=== PATIENT | male | born 1945 | race Caucasian/White ===

== ENCOUNTER 2016-07-08 10:47 | Emergency (ER) | payer MEDICARE ==
[~2016-07-08] VITALS: Ht 182.9 cm; Wt 181.4 kg
[2016-07-08 11:00] VITALS: BP 117/66
[2016-07-08] MEDS ORDERED: LIDOCAINE 1% / SOD BICARB 8.4% 20 ML VIAL. IJ ONE (12:00)
[2016-07-08] MEDS ORDERED: DIPHTH,PERTUSS(ACELL),TET TOX 0.5 ML DISP.SYRIN. VAX IM ONE (12:00)
--- NOTE | 2016-07-08 12:15 | RAD ---
Indication puncture wound first webspace of the hand. AP oblique and lateral views of the left hand were obtained. There is considerable swelling involving the hand on the radial side (laterally) with some associated soft tissue swelling of the index finger. There are underlying degenerative changes. An acute bony finding is not seen. No radiopaque foreign body is seen in the soft tissues. IMPRESSION: Soft tissue swelling. Degenerative change. No acute bony finding seen
--- NOTE | 2016-07-08 12:27 | PHYS DOC ---
Past Medical History Past Medical History: COPD, GERD, Hypertension Past Surgical History: Cholecystectomy Additional Past Surgical Histo: CABG Alcohol Use: None Drug Use: None Adult General Chief Complaint Chief Complaint: LACERATION/AVULSION HPI HPI Patient is a 71 year old [f__sex] who presents with [] Review of Systems Review of Systems Constitutional: Denies fever or chills [] Eyes: Denies change in visual acuity, redness, or eye pain [] HENT: Denies nasal congestion or sore throat [] Respiratory: Denies cough or shortness of breath [] Cardiovascular: No additional information not addressed in HPI [] GI: Denies abdominal pain, nausea, vomiting, bloody stools or diarrhea [] : Denies dysuria or hematuria [] Musculoskeletal: Denies back pain or joint pain [] Integument: Denies rash or skin lesions [] Neurologic: Denies headache, focal weakness or sensory changes [] Endocrine: Denies polyuria or polydipsia [] Current Medications Current Medications Current Medications Medications (Trade) Dose Ordered Sig/Sheldon Start Time Stop Time Status Last Admin Dose Admin Diphtheria/ Tetanus/Acell Pertussis (Boostrix) 0.5 ml ONCE ONCE 07/08/16 12:00 07/08/16 12:01 DC 07/08/16 12:22 0.5 ML Lidocaine/Sodium Bicarbonate (Buffered Lidocaine 1%) 20 ml 1X ONCE 07/08/16 12:00 07/08/16 12:01 DC 07/08/16 12:21 20 ML Allergies Allergies Allergies Coded Allergies Type Severity Reaction Last Updated Verified No Known Drug Allergies 07/08/16 No Physical Exam Physical Exam Constitutional: Well developed, well nourished, no acute distress, non-toxic appearance. [] HENT: Normocephalic, atraumatic, bilateral external ears normal, oropharynx moist, no oral exudates, nose normal. [] Eyes: PERRLA, EOMI, conjunctiva normal, no discharge. [] Neck: Normal range of motion, no tenderness, supple, no stridor. [] Cardiovascular:Heart rate regular rhythm, no murmur [] Lungs & Thorax: Bilateral breath sounds clear to auscultation [] Abdomen: Bowel sounds normal, soft, no tenderness, no masses, no pulsatile masses. [] Skin: Warm, dry, no erythema, no rash. [] Back: No tenderness, no CVA tenderness. [] Extremities: No tenderness, no cyanosis, no clubbing, ROM intact, no edema. [] Neurologic: Alert and oriented X 3, normal motor function, normal sensory function, no focal deficits noted. [] Psychologic: Affect normal, judgement normal, mood normal. [] Current Patient Data Vital Signs Vital Signs Date Time Temp Pulse Resp B/P Pulse Ox O2 Delivery O2 Flow Rate FiO2 07/08/16 11:00 98.1 77 18 96 Room Air 98.1 EKG EKG [] Radiology/Procedures Radiology/Procedures REASON: puncture wound to 1st web space PROCEDURE: HAND LEFT 3V Indication puncture wound first webspace of the hand. AP oblique and lateral views of the left hand were obtained. There is considerable swelling involving the hand on the radial side (laterally) with some associated soft tissue swelling of the index finger. There are underlying degenerative changes. An acute bony finding is not seen. No radiopaque foreign body is seen in the soft tissues. IMPRESSION: Soft tissue swelling. Degenerative change. No acute bony finding seen Course & Med Decision Making Course & Med Decision Making Pertinent Labs and Imaging studies reviewed. (See chart for details) Patient presents with a 1.5 cm laceration to the right hand webspace between the first and second digits. The wound was anesthetized with 1% buffered lidocaine. The wound was explored for foreign bodies and none were identified. There was no tendon laceration. The wound was cleaned using chlorhexidine scrub and copiously irrigated using normal saline. Wound edges were well approximated using 4 simple interrupted sutures using 5-0 nylon. The patient tolerated the procedure well and bleeding was controlled. A sterile dressing was applied. The patient presents with puncture wound to the right hand. There are no fractures or dislocations seen on x-ray. He does not have any signs or symptoms of compartment syndrome. The wound was closed with nonabsorbable sutures. He is instructed on wound care. He is also educated on signs and symptoms of compartment syndrome and need for return. The patient had his tetanus immunization updated. Return precautions were discussed. He verbalizes understanding and agrees with plan. Dragon Disclaimer Dragon Disclaimer This electronic medical record was generated, in whole or in part, using a voice recognition dictation system. Departure Departure Impression: Primary Impression: Hand laceration Disposition: HOME, SELF-CARE Condition: STABLE Referrals: Roman LOCKETT MD (PCP) Patient Instructions: Sutured Wound Care, [id number] Additional Instructions: Your wound was closed with nonabsorbable sutures. The sutures may get wet, but do not submerge the wound in water. Please follow-up with your doctor to have the sutures removed in 10 days. Keep the wound covered with antibiotic ointment and a bandage. Clean the wound with soap and water only, do not use peroxide or alcohol to clean the wound. Return to emergency department if you have increased swelling, increased pain, numbness, tingling, or decreased blood flow to the fingers. If you notice signs of infection including redness, swelling, or yellow/green drainage from the wound you should also return to the emergency department or follow-up with your doctor. Problem Qualifiers Primary Impression: Hand laceration Encounter type: initial encounter Laterality: right Qualified Code: S61.411A - Laceration without foreign body of right hand, initial encounter MULUGETA CASTRO Jul 08, 2016 12:27
== END 2016-07-08 13:55 | disposition home or self-care (01) ==
LOC: ER 10:47
DX: S61.411A Laceration without foreign body of right hand, initial encounter (principal); J44.9 Chronic obstructive pulmonary disease, unspecified; I10 Essential (primary) hypertension; K21.9 Gastro-esophageal reflux disease without esophagitis; Z95.1 Presence of aortocoronary bypass graft; X58.XXXA Exposure to other specified factors, initial encounter; Y93.89 Activity, other specified; Y99.8 Other external cause status; Y92.89 Other specified places as the place of occurrence of the external cause
CPT/HCPCS: 12001; 73130; 90471; 90715; 99284-25

== ENCOUNTER → 2017-05-08 | Outpatient (CLI) | payer BC, MEDICARE ==
--- NOTE | 2017-05-08 11:28 | KCIC ---
Bilateral carotid Doppler ultrasound 05/08/2017 CLINICAL INDICATION: Carotid bruit COMPARISON: Carotid ultrasound 09/30/2004. Multiple grayscale, color, and duplex spectral analysis waveform sonographic images were acquired of the carotid, subclavian, and vertebral arteries. Findings: Velocities used to determine stenosis are known to correlate with NASCET angiographic criteria. Right carotid system: Proximal CCA PSV: 155 cm/s Distal ICA PSV: 128 cm/s Distal ICA EDV: 33 cm/s ECA: 170 cm/s ICA/CCA ratio: 0.8 Left carotid system: Proximal CCA PSV: 164 cm/s Proximal ICA PSV: 253 cm/s Proximal ICA EDV: 43 cm/s ECA: 156 cm/s ICA/CCA ratio: 1.6 There is calcified plaque at the right carotid bulb and proximal right ICA. There is eccentric calcified plaque at the left carotid bulb and throughout the left internal carotid artery. There is antegrade flow in the bilateral vertebral arteries. Impression: 1. Scattered calcified plaque throughout the left internal carotid artery with peak systolic velocity suggestive of greater than 70% stenosis, however the ICA/CCA ratio is less than 2. CTA neck could be obtained for further evaluation of degree of luminal stenosis. 2. Mild scattered right carotid arterial system plaque and mildly elevated velocities without hemodynamically significant stenosis by visual or spectral analysis criteria. Electronically signed by: Lul Dailey MD (05/08/2017 11:25 AM) [id number]
== END | disposition home or self-care (01) ==
LOC: KCIC US 09:42
PROVIDERS: ATTEND Family Medicine
DX: I65.21 Occlusion and stenosis of right carotid artery (principal); R09.89 Other specified symptoms and signs involving the circulatory and respiratory systems
CPT/HCPCS: 93880

== ENCOUNTER → 2017-07-02 | Outpatient (CLI) | payer BC ==
[2017-07-02 10:16] LABS: ISTAT CREATININE 1.3 mg/dL (0.7-1.3)
[2017-07-02] MEDS: IOHEXOL 300 MG/ML 100ML VIAL. IV ×2 (10:31)
== END | disposition home or self-care (01) ==
LOC: KCIC CT 09:33
DX: I65.22 Occlusion and stenosis of left carotid artery (principal)
CPT/HCPCS: 70498; 82565; Q9967

== ENCOUNTER → 2017-12-18 | Outpatient (CLI) | payer BC ==
[2017-12-18] MEDS: ZOLPIDEM 5 MG TABLET. PO (22:58)
== END | disposition home or self-care (01) ==
LOC: SLPLAB 18:37
DX: G47.33 Obstructive sleep apnea (adult) (pediatric) (principal); G47.34 Idiopathic sleep related nonobstructive alveolar hypoventilation; G47.61 Periodic limb movement disorder; I10 Essential (primary) hypertension; J44.9 Chronic obstructive pulmonary disease, unspecified; K21.9 Gastro-esophageal reflux disease without esophagitis
CPT/HCPCS: 95810

== ENCOUNTER → 2018-05-16 | Outpatient (CLI) | payer BC ==
[~2018-05-16] MED LIST: LISI2.5T PO; OMEP20CA9 PO
--- NOTE | 2018-05-16 17:15 | KCIC ---
Carotid Doppler ultrasound INDICATION: Stenosis.. COMPARISON: Prior carotid Doppler ultrasound of 05/08/2017. TECHNIQUE: Color, grayscale and doppler ultrasound images obtained of the carotid system bilaterally. Percent stenosis is estimated using criteria that correlates with NASCET methodology. FINDINGS: Peak systolic velocities are as follows in cm/s: Right Carotid System: CCA PSV: 159 ICA PSV: 186 ICA EDV: 32 ECA PSV: 187 ICA/CCA Ratio 1.2 Right vertebral artery is patent with normal direction of flow. Generalized plaque and intimal thickening. Left Carotid System: CCA PSV: 142 ICA PSV: 142 ICA EDV: 20 ECA PSV: 154 ICA/CCA Ratio 1.0 Left vertebral artery is patent with normal direction of flow. Generalized plaque with intimal thickening. IMPRESSION: Elevated internal carotid artery peak systolic velocities bilaterally, compatible with 50-69% moderate stenosis. Note that ICA end-diastolic velocities and IC/CC ratios are not elevated, however. Electronically signed by: Lev Beltran MD (05/16/2018 5:11 PM) [facility]
== END | disposition home or self-care (01) ==
LOC: KCIC US 14:36
PROVIDERS: ATTEND Family Medicine
DX: I65.23 Occlusion and stenosis of bilateral carotid arteries (principal)
CPT/HCPCS: 93880

== ENCOUNTER → 2019-01-14 | Outpatient (CLI) | payer BC ==
[~2019-01-14] MED LIST changes: +ASPI81TA50 PO; +ATOR20TA58 PO; +BUPIVACAINE MPF 0.5% 10 ML VIAL for KCIC. IM ONE; +CYCL10TA2 PO; +DICL100G18 TP; +HYDR-2145 PO; +IOHEXOL 300 MG/ML 50 ML VIAL. INT ART ONE; +LIDOCAINE 1% Multi-Dose 20 ML VIAL. ID ONE; +LISI10TA2 PO; +METO25TA2 PO; +NAPR-514 PO; +NITR0.4T SL; +OMEP20CA10 PO; -OMEP20CA9 PO; +ROPI0.25 PO; +ROPI1TAB2 PO; +SERT100T PO; +methylPREDNISolone ACETATE 40 MG/ML VIAL. INT ART ONE
--- NOTE | 2019-01-14 15:44 | KCIC ---
PROCEDURE Therapeutic left hip injection using fluoroscopic guidance. HISTORY Hip pain. TECHNIQUE The procedure was explained to the patient as were potential risks, including infection, bleeding or allergic reaction. All questions were answered. Informed written and verbal consent was obtained. The hip was prepped and draped in the usual sterile manner. Following administration of local anesthetic, a 22-gauge spinal needle was advanced into the hip joint without difficulty, with care taken to avoid the vascular structures. Stylet was removed and following negative aspiration, a mixture of 4 cc Omnipaque-300, 2 cc (80 mg) Depo-Medrol, 4 cc bupivacaine and 4 cc 1% lidocaine were injected without difficulty. Fluoroscopy demonstrates uniform and satisfactory distribution of the injection through the hip. The needle was removed. There was good hemostasis at the injection site. The patient left in stable condition without immediate complication. Patient was advised as to potential postprocedural complications. 2 spot images were obtained. FLUOROSCOPY TIME: 50 seconds Electronically signed by: Lev Beltran MD (01/14/2019 3:41 PM) [facility]
== END ==
LOC: KCIC 12:35
PROVIDERS: ATTEND Orthopaedic Surgery Sports Medicine
DX: M25.552 Pain in left hip (principal)
CPT/HCPCS: 20610; 77002; J1030; Q9967

== ENCOUNTER → 2019-01-21 | Outpatient (CLI) | payer BC ==
[~2019-01-21] MED LIST changes: -BUPIVACAINE MPF 0.5% 10 ML VIAL for KCIC. IM ONE; -IOHEXOL 300 MG/ML 50 ML VIAL. INT ART ONE; -LIDOCAINE 1% Multi-Dose 20 ML VIAL. ID ONE; -methylPREDNISolone ACETATE 40 MG/ML VIAL. INT ART ONE
--- NOTE | 2019-01-21 14:30 | KCIC ---
LUMBAR SPINE WO CONTRAST History: Low back pain. Left hip pain. Technique: Multiplanar, multi sequential MR imaging was performed of the lumbar spine. Comparison: January 10, 2019 lumbar spine radiograph. Findings: Normal vertebral body height and alignment. No fracture. Conus terminates at the normal location. No evidence of nerve root clumping. Bilateral renal cysts. L1-L2: Minimal posterior disc bulge. Mild facet arthropathy. No canal or neuroforaminal narrowing. L2-L3: Broad-based posterior disc bulge. Mild facet arthropathy. No canal narrowing. Left subarticular recess narrowing with abutment of the descending left L3 nerve root. Mild left neural foraminal narrowing. No right neuroforaminal narrowing. L3-L4: Broad-based posterior disc bulge with superimposed central disc protrusion. Bilateral subarticular recess narrowing with abutment of the descending left L4 nerve root. Moderate facet arthropathy. No canal narrowing. Mild bilateral neural foraminal narrowing. L4-L5: Small posterior disc bulge. Advanced facet arthropathy. No canal narrowing. No neuroforaminal narrowing. L5-S1: Minimal posterior disc bulge. Mild facet arthropathy. No canal narrowing. No neuroforaminal narrowing. Impression: 1. Multilevel lumbar spondylosis most prominent at L2-L3 and L3-L4. 2. L2-L3 and L3-L4 left subarticular recess narrowing with abutment of the descending nerve roots. Correlate for radiculopathy. 3. Mild neural foraminal narrowing left L2-L3 and bilateral L3-L4. Electronically signed by: Hi Rincon DO (01/21/2019 2:27 PM) [facility]
== END | disposition home or self-care (01) ==
LOC: KCIC MRI 11:33
PROVIDERS: ATTEND Orthopaedic Surgery Sports Medicine
DX: M47.26 Other spondylosis with radiculopathy, lumbar region (principal); M48.061 Spinal stenosis, lumbar region without neurogenic claudication; M51.26 Other intervertebral disc displacement, lumbar region; M12.88 Other specific arthropathies, not elsewhere classified, other specified site; N28.1 Cyst of kidney, acquired
CPT/HCPCS: 72148

== ENCOUNTER → 2019-02-11 | Outpatient (CLI) | payer BC ==
[~2019-02-11] MED LIST changes: +ATOR20TA PO; +HYDR-2761 PO; +HYDR12.575 PO; +IOHEXOL 180 MG/ML 10 ML VIAL. ONE; +NAPR1TAB25 PO; -NITR0.4T SL; +NITR0.4T24 SL; +OMEG-165 PO; +methylPREDNISolone ACETATE 40 MG/ML VIAL. ONE; +methylPREDNISolone ACETATE 80 MG/ML VIAL. ONE
--- NOTE | 2019-02-11 21:24 | PAIN ---
DATE OF SERVICE: 02/11/2019 CHIEF COMPLAINT: Low back and left lower extremity pain. 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 The patient reports it is worse with standing, walking, changing positions, getting up from sleep at least waking up to 2-3 times a night, does not affect his bowel or bladder control, but does affect his ability to walk. He is using a walking stick to ambulate and to help ambulate he has had chiropractic treatment over the years, also physical therapies and has continued to do chiropractor treatment, which is helpful, but not decreasing the pain significantly. The patient reports pain in the low back, left posterior gluteus, posterior thigh, lateral thigh, anterior thigh, medial thigh, and medial lower leg to the ankle, but not into the foot. The patient reports it is constant, sharp, stabbing, throbbing with numbness and tingling, worse with activity, changes during the day radiation to the left leg, aching, cold sensation at times as well. The patient rates his disability rating from 0-10, 10 being the worst, is a 10 with family and home responsibilities, recreation, social activity as well as sexual behavior, self-care, rated at 5 and 1 with life support activities. The patient did have an MRI scan of the lumbar spine showing L3-L4 broad-based posterior disk bulge with superimposed central disk protrusion and abutment of the descending left L4 nerve root with moderate facet arthropathy. L4-L5 shows small posterior bulge and L2-L3 shows a broad-based posterior bulge with abutment of the descending left L3 nerve root. The patient reports no complete motor loss, but significant fatigability of the left lower extremity with any ambulation, even just standing for more than about 10-15 minutes causes the pain to increase significantly. PAST MEDICAL HISTORY: Significant for shortness of breath, hypertension, gastroesophageal reflux, dizziness, arthritis, obesity. PREVIOUS SURGERY: Include bilateral hernia repairs, laparoscopic cholecystectomy, coronary artery bypass grafting x 5. CURRENT MEDICATIONS: Include Requip, hydrocodone, Aleve, omeprazole, Lipitor, lisinopril, fish oil, sertraline, hydrochlorothiazide, metoprolol, daily baby aspirin and p.r.n. nitroglycerin. ALLERGIES: THE PATIENT IS ALLERGIC TO LEVAQUIN. FAMILY HISTORY: Significant for no major medical problems or conditions that he lists. SOCIAL HISTORY: The patient does not drink alcohol, does not smoke. Denies any illegal, illicit or recreational drugs. He is retired. Lives locally in [place] and is and lives with his spouse. No children living at home. REVIEW OF SYSTEMS: The patient's review of systems is positive for those items mentioned in history of present illness. All systems reviewed and otherwise negative. It is complete, full, well documented on the patient's chart. PHYSICAL EXAMINATION: VITAL SIGNS: The patient's blood pressure is 97/56, pulse 70, respirations 19, temperature is 98.2 degrees Fahrenheit, 6 feet 0 inches, weight is 370 pounds. GENERAL: The patient is awake, alert, oriented, appropriate, very pleasant demeanor. HEENT: Head shows normocephalic, atraumatic. Extraocular movements are intact and symmetrical. Oral cavity: Mucous membranes moist and pink. Dentition is intact. NECK: Shows anterior throat supple without palpable lymphadenopathy noted. Swallow reflex symmetrical. CHEST: Shows normal on inspection. Breath sounds clear to auscultation bilaterally. HEART: S1 and S2 clear. No murmurs auscultated. ABDOMEN: Obese, soft, nontender, nondistended. No palpable organomegaly is noted. No rebound or guarding demonstrated. BACK: Shows spine grossly in the midline. Normal appearing thoracic kyphosis and lumbar lordotic curvature. Lumbar paraspinous muscle shows symmetrical on inspection, on palpation shows some moderate tenderness diffusely, but without significant radiation. The patient has good rotational motion of lumbar spine, both laterally as well as extension and flexion without significant difficulty. EXTREMITIES: Lower extremities show deep tendon reflexes at 1+ in the patellar and tendo-Achilles tendons. Motor exam is approximately 4 on a scale of 5, but equal and symmetrical dorsiflexion, extension, quadriceps and hamstring flexion. Peripheral pulses are 1+ posterior tibia. No peripheral edema is noted. Lower extremities are warm and dry to touch, equal in color and appearance. The patient is able to stand, stand on his toes without significant difficulty or loss of balance, walks with a significant gait favoring the left lower extremity using a walking stick or cane in his right hand. SKIN: Shows warm and dry, good turgor. No edema. No sores, rashes or bruising throughout. IMPRESSION: 1. This is a 73-year-old male with approximate long history of low back pain approximately 5 weeks, increasing pain, left lower extremity and low back in a radicular fashion. 2. MRI scan of lumbar spine as noted. 3. Arthritis. 4. Hypertension. 5. Coronary artery disease. 6. Obesity. PLAN: Options were discussed with the patient including conservative medical management, physical therapy, interventional techniques and would like to pursue interventional techniques. We discussed a lumbar epidural steroid injection using description as well as anatomical models to describe the procedure. Risks were then discussed including, but not limited to bleeding, infection, possibility of epidural hematoma, subsequent neurologic compromise, dural puncture, headaches, spinal cord and/or nerve damage, side effects of steroid medication and poor results regarding pain control. The patient understands and wished to proceed. The patient will return to clinic in approximately 2 weeks for followup. She was counseled on return appointment, activity level and side effects to be aware of. DIAGNOSES: Lumbar radiculopathy with lumbar degenerative disk disease and lumbar spondylosis. PROCEDURE: Lumbar epidural steroid injection, translaminar approach at L3-L4 level using C-arm fluoroscopic guidance under sterile prep and drape using local anesthetic. MEDICATION INJECTED: The patient received a total of 120 mg Depo-Medrol plus 10 mL of preservative-free normal saline and 2 mL of contrast. CONDITION AT DISCHARGE: Stable. The patient tolerated the procedure well, had no complications. EVERETT ADAMS MD DR: OSEI/jaky JOB#: [id number] / [id number] Roman Osuna MD
== END ==
LOC: PNCL 09:43
PROVIDERS: ATTEND Anesthesiology
DX: M51.16 Intervertebral disc disorders with radiculopathy, lumbar region (principal); M47.816 Spondylosis without myelopathy or radiculopathy, lumbar region; I10 Essential (primary) hypertension; K21.9 Gastro-esophageal reflux disease without esophagitis; E66.9 Obesity, unspecified; I25.10 Atherosclerotic heart disease of native coronary artery without angina pectoris; Z87.39 Personal history of other diseases of the musculoskeletal system and connective tissue; Z90.49 Acquired absence of other specified parts of digestive tract; Z95.1 Presence of aortocoronary bypass graft; Z98.890 Other specified postprocedural states; Z88.8 Allergy status to other drugs, medicaments and biological substances
CPT/HCPCS: 62323; J1030; J1040; Q9965

== ENCOUNTER → 2019-02-25 | Outpatient (CLI) | payer BC ==
[~2019-02-25] MED LIST changes: -IOHEXOL 180 MG/ML 10 ML VIAL. ONE; -methylPREDNISolone ACETATE 40 MG/ML VIAL. ONE; -methylPREDNISolone ACETATE 80 MG/ML VIAL. ONE
--- NOTE | 2019-02-25 15:03 | PAIN ---
DATE OF SERVICE: 02/25/2019 PROGRESS NOTE FOR PAIN CLINIC DIAGNOSES: Lumbar radiculopathy with lumbar degenerative disk disease and lumbar spondylosis. HISTORY OF PRESENT ILLNESS: The patient is a 73-year-old male who returns for followup status post lumbar epidural steroid injection x 1. The patient reports about 100% improvement and still improved. The patient reports he has no pain whatsoever in his low back. His left leg is doing much better. After about 2-3 days, the pain was completely gone and has stayed that way. The patient reports it does not awaken him from sleep at night. He has been increasing his distance walking, doing activities at home. Although he has been taking it easy, he has not been doing a lot of strenuous work, but traveling day-to-day in and out of the car without difficulty and again, sleeping well at night. The patient reports his pain is a 2 on a scale of 10 at its worst, average and least and is a 2 today. The patient reports it is aching and dull, occasionally in the left leg, but very, very rarely. The patient reports no other complaints. He is very pleased with his progress at this time. PHYSICAL EXAMINATION: VITAL SIGNS: The patient's blood pressure is 111/69, pulse 87, respirations 18 and temperature is 98.4 degrees Fahrenheit. Height is 6 feet, weight is 370 pounds. GENERAL: The patient is awake, alert, oriented, appropriate, very pleasant demeanor. HEENT: Exam shows normocephalic, atraumatic. Extraocular movements are intact and symmetrical. Oral cavity: Mucous membranes are moist and pink. Dentition is intact. NECK: Shows anterior throat supple, without palpable lymphadenopathy noted. Swallow reflex is symmetrical. CHEST: Shows normal on inspection. Breath sounds are clear to auscultation bilaterally. HEART: Shows S1, S2 clear. No murmurs auscultated. ABDOMEN: Obese, soft, nontender and nondistended. BACK: Shows spine grossly in the midline. Normal-appearing thoracic kyphosis and some minor flattening of the lumbar lordotic curvature. Lumbar paraspinous muscle shows symmetrical on inspection. On palpation, it shows some moderate tenderness diffusely bilaterally, but only diffusely, without radiation and without trigger points. EXTREMITIES: The patient's lower extremities show deep tendon reflexes 1+ in the patellar and tendo calcaneus tendons. Motor exam is a 4 on a scale of 5 and equal and symmetrical. Peripheral pulses are 1+ posterior tibia. No peripheral edema is noted. Options were discussed with the patient. The patient's old chart was reviewed as was his current medication regimen updated. Current review of systems updated today as well. We will hold on any further injections at this time as the patient is doing quite a bit better. We would like to hold on any further injections. The patient will increase activity as tolerated. He will return to the clinic at this time on an as needed basis. EVERETT ADAMS MD DR: OSEI/jaky JOB#: [id number] / [id number]
== END | disposition home or self-care (01) ==
LOC: PNCL 10:31
PROVIDERS: ATTEND Anesthesiology
DX: M51.16 Intervertebral disc disorders with radiculopathy, lumbar region (principal); M47.26 Other spondylosis with radiculopathy, lumbar region; E66.9 Obesity, unspecified
CPT/HCPCS: G0463

== ENCOUNTER → 2019-09-17 | Outpatient (CLI) | payer BC ==
[~2019-09-17] MED LIST changes: -DICL100G18 TP; +DICL100G54 TP; +IOHEXOL 180 MG/ML 10 ML VIAL. ONE; -OMEP20CA10 PO; +OMEP20CA16 PO; -ROPI1TAB2 PO; +ROPI1TAB4 PO; +methylPREDNISolone ACETATE 40 MG/ML VIAL. ONE; +methylPREDNISolone ACETATE 80 MG/ML VIAL. ONE
--- NOTE | 2019-09-17 10:10 | PAIN ---
DATE OF SERVICE: 09/17/2019 PROGRESS NOTE FOR PAIN CLINIC DIAGNOSES: Lumbar radiculopathy with lumbar degenerative disk disease and lumbar spondylosis. HISTORY OF PRESENT ILLNESS: The patient is a 74-year-old male who returns for followup status post lumbar epidural steroid injection, last seen 02/25/2019. The patient did very well with about 100% improvement until about the last 2 weeks. The patient reports the pain is returning now in the low back, left lower extremity, posterior gluteus, posterior thigh, lateral thigh, anterior thigh, medial thigh and medial lower leg. The patient reports it is a 9 on a scale of 10 at its worst, 8 on average, 8 at its least and is an 8 today. The patient reports it became more constant, more severe, worse with walking, standing, changing positions. Prior to that, he was doing much better with increased distance walking, doing household activities, sleeping better. Now it is awakening him from sleep about every 2-3 hours. The patient reports no new motor or sensory deficits, no new bowel or bladder incontinence, but still significant pain with walking, using a walking stick to ambulate, but reports no new deficits. No bowel or bladder incontinence or muscle or motor loss. PHYSICAL EXAMINATION: VITAL SIGNS: The patient's blood pressure is 125/61, pulse 80, respirations 16, temperature 98.8 degrees Fahrenheit. Height is 6 feet. Weight is 386 pounds. GENERAL: The patient is awake, alert, oriented, appropriate, very pleasant demeanor. HEENT: Shows normocephalic, atraumatic. Extraocular movements are intact and symmetrical. Oral cavity shows mucous membranes are moist and pink. Dentition is intact. NECK: Shows anterior throat supple. CHEST: Shows normal on inspection. Breath sounds are clear to auscultation bilaterally. HEART: Shows S1 and S2 clear. No murmurs auscultated. ABDOMEN: Obese, soft, nontender, nondistended. BACK: Shows spine grossly in the midline. Normal appearing thoracic kyphosis and lumbar lordotic curvature. Lumbar paraspinous muscle shows symmetrical on inspection, on palpation shows some moderate tenderness diffusely bilaterally going diffusely without significant radiation. The patient has good rotational motion of lumbar spine, both laterally as well as extension and flexion without difficulty. EXTREMITIES: Lower extremities showed deep tendon reflexes at 1+ in the patellar and tendo calcaneus tendons. Motor exam is approximately 4 on a scale of 5, but equal with dorsiflexion and extension, quadriceps and hamstring flexion. Peripheral pulses are 1+ to posterior tibia. No peripheral edema is noted. Options were discussed with the patient. The patient's old chart was reviewed as his current medication regimen updated. Current review of systems updated today as well and we will proceed with a lumbar epidural steroid injection. Upon attempting fluoroscopy today, the fluoroscopy C-arm was not working, so the patient will be coming back to the clinic tomorrow or at later date to have the procedure performed. EVERETT ADAMS MD DR: OSEI/jaky JOB#: [id number] / [id number]
== END ==
LOC: PNCL 08:18
PROVIDERS: ATTEND Anesthesiology
DX: M51.16 Intervertebral disc disorders with radiculopathy, lumbar region (principal); M47.816 Spondylosis without myelopathy or radiculopathy, lumbar region; Z88.1 Allergy status to other antibiotic agents; Z79.899 Other long term (current) drug therapy; Z98.890 Other specified postprocedural states; Z53.8 Procedure and treatment not carried out for other reasons
CPT/HCPCS: 62323; J1030; J1040; Q9965

== ENCOUNTER → 2019-09-18 | Outpatient (CLI) | payer BC ==
--- NOTE | 2019-09-18 09:02 | PAIN ---
DATE OF SERVICE: 09/18/2019 PROGRESS NOTE FOR PAIN CLINIC DIAGNOSIS: Lumbar radiculopathy with lumbar degenerative disk disease and lumbar spondylosis. HISTORY OF PRESENT ILLNESS: The patient is a 74-year-old male who returns for followup, last seen yesterday when we would have performed a lumbar epidural steroid injection; however, the C-arm is undergoing technical difficulties and it has been replaced. The patient returns today for his procedure. The patient reports still significant pain in the low back into the left greater than right lower extremity, posterior gluteus, lateral thigh, anterior thigh, medial thigh, medial lower leg and knee with ambulation, standing, walking, changing positions. No significant changes. The patient reports she did not sleep well last night, the pain has increased since about a week ago, totally. The patient had done very well prior to that with near 100% improvement for over 6 months after his last injection. The patient reports no new motor or sensory deficits, no new changes. PHYSICAL EXAMINATION: VITAL SIGNS: The patient's blood pressure 135/79, pulse 99, respirations 16, temperature 98.1 degrees Fahrenheit, height is 6 feet, weight is 386 pounds. GENERAL: The patient is awake, alert, oriented, appropriate, very pleasant in demeanor. HEENT: Shows normocephalic, atraumatic. Extraocular movements are intact and symmetrical. Oral cavity: Mucous membranes moist and pink. NECK: Shows anterior throat supple. CHEST: Shows breath sounds clear to auscultation bilaterally. HEART: Shows S1, S2 clear. ABDOMEN: Soft, obese, nontender, nondistended. BACK: Shows spine grossly in midline. Lumbar paraspinous musculature again shows some moderate tenderness with palpation, but symmetrical lumbar paraspinous musculature on inspection, patient shows good rotational motion as well as extension and flexion. EXTREMITIES: Lower extremities show deep tendon reflexes 1+ in the patellar and tendo calcaneus tendons. Motor exam remains approximately 4 on a scale 5, but equal bilaterally. Options were discussed with the patient. The patient's old chart was reviewed as his current medication regimen updated. Current review of systems updated today as well. We will proceed with a lumbar epidural steroid injection today with fluoroscopic guidance. Risks were again discussed including, but not limited to bleeding, infection, possibility of epidural hematoma, subsequent neurological compromise, dural puncture, headaches, spinal cord and/or nerve damage, side effects of steroid medication and poor results regarding pain control. The patient understands and wished to proceed. The patient will return to clinic in approximately 2 weeks for followup. She was counseled on return appointment, activity level and side effects to be aware of. DIAGNOSIS: Lumbar radiculopathy with lumbar degenerative disk disease and lumbar spondylosis. PROCEDURE: Lumbar epidural steroid injection, translaminar approach at the L3-L4 level using C-arm fluoroscopic guidance under sterile prep and drape using local anesthetic. MEDICATION INJECTED: A total of 120 mg Depo-Medrol plus 10 mL of preservative-free normal saline and 2 mL of contrast. CONDITION AT DISCHARGE: Stable. The patient tolerated the procedure well, had no complications. EVERETT ADAMS MD DR: OSEI/jaky JOB#: [id number] / [id number]
== END ==
LOC: PNCL 07:47
PROVIDERS: ATTEND Anesthesiology
DX: M51.16 Intervertebral disc disorders with radiculopathy, lumbar region (principal); M47.816 Spondylosis without myelopathy or radiculopathy, lumbar region
CPT/HCPCS: 62323; J1030; J1040; Q9965

== ENCOUNTER → 2019-10-08 | Outpatient (CLI) | payer BC ==
--- NOTE | 2019-10-08 11:13 | PAIN ---
DATE OF SERVICE: 10/08/2019 PROGRESS NOTE FOR PAIN CLINIC DIAGNOSES: Lumbar radiculopathy with lumbar degenerative disk disease and lumbar spondylosis. HISTORY OF PRESENT ILLNESS: The patient is a 74-year-old male who returns for followup status post lumbar epidural steroid injection x 1 this series. The patient reports only about 2 days of about 75% improvement and the pain began to return fairly quickly in the low back, bilateral lower extremities, mostly in the lateral thighs, anterior thighs, medial thighs, somewhat worse on the left than the right, but present bilaterally. The patient reports it is a 9 on a scale of 10 at its worst over the past week, 9 on average, 7 at its least and is a 9 today. The patient reports it is stabbing, radiating, becoming more constant and severe with walking, standing, changing positions. The patient is still using a walking stick to ambulate, has it with him today. The patient reports no new motor or sensory deficits, no bowel or bladder incontinence. It awakens him from sleep about every 3 hours. The patient reports otherwise no new changes. PHYSICAL EXAMINATION: VITAL SIGNS: The patient's blood pressure 111/45, pulse 54, respirations 18, temperature 99.0 degrees Fahrenheit, height is 6 feet, weight is 372 pounds. GENERAL: The patient is awake, alert, oriented, appropriate, very pleasant demeanor. HEENT: Shows normocephalic, atraumatic. Extraocular movements are intact and symmetrical. Oral cavity shows mucous membranes moist and pink. Dentition is intact. NECK: Shows anterior throat supple without palpable lymphadenopathy noted. Swallow reflex symmetrical. CHEST: Shows normal on inspection. Breath sounds clear to auscultation bilaterally. HEART: Shows S1, S2 clear. No murmurs auscultated. ABDOMEN: Soft, nontender, nondistended. No palpable organomegaly is noted. No rebound or guarding demonstrated. BACK: Shows spine grossly in the midline. Normal appearing thoracic kyphosis, some flattening of lumbar lordotic curvature. Lumbar paraspinous muscle shows symmetrical on inspection, on palpation shows some moderate tenderness diffusely bilaterally, but only diffusely without significant radiation. The patient has good rotational motion of lumbar spine, both laterally as well as extension and flexion without significant increase in pain. EXTREMITIES: The patient's lower extremities show deep tendon reflexes 1+ in the patellar and tendo calcaneus tendons. Motor exam is 4/5 bilaterally with dorsiflexion, extension, quadriceps and hamstring flexion. Peripheral pulses are 1+ bilaterally. Options were discussed with the patient. The patient's old chart was reviewed as his current medication regimen updated. Current review of systems updated today as well. We will proceed with a second in a series of lumbar epidural steroid injection today with fluoroscopic guidance. Risks were again discussed including, but not limited to bleeding, infection, possibility of epidural hematoma, subsequent neurological compromise, dural puncture, headaches, spinal cord and/or nerve damage, side effects of steroid medication and poor results regarding pain control. The patient understands and wished to proceed. The patient will return to clinic in approximately 2 weeks for followup. He was counseled on return appointment, activity level and side effects to be aware of. DIAGNOSES: Lumbar radiculopathy with lumbar degenerative disk disease and lumbar spondylosis. PROCEDURE: Lumbar epidural steroid injection, translaminar approach at the L3-L4 level using C-arm fluoroscopic guidance under sterile prep and drape using local anesthetic. MEDICATION INJECTED: A total of 120 mg Depo-Medrol plus 10 mL preservative-free normal saline and 2 mL of contrast. CONDITION AT DISCHARGE: Stable. The patient tolerated the procedure well, had no complications. EVERETT ADAMS MD DR: OSEI/jaky JOB#: [id number] / [id number]
== END ==
LOC: PNCL 09:50
PROVIDERS: ATTEND Anesthesiology
DX: M51.16 Intervertebral disc disorders with radiculopathy, lumbar region (principal); M47.816 Spondylosis without myelopathy or radiculopathy, lumbar region
CPT/HCPCS: 62323; J1030; J1040; Q9965

== ENCOUNTER → 2019-11-28 | Outpatient (CLI) | payer BC ==
[~2019-11-28] MED LIST changes: -IOHEXOL 180 MG/ML 10 ML VIAL. ONE; -methylPREDNISolone ACETATE 40 MG/ML VIAL. ONE; -methylPREDNISolone ACETATE 80 MG/ML VIAL. ONE
--- NOTE | 2019-11-28 09:17 | KCIC ---
EXAM: 1. LEFT ELBOW 2 VIEWS. 2. LEFT FOREARM 2 VIEWS. HISTORY: Pain with range of motion. COMPARISON: None. FINDINGS: No fractures are identified at the elbow. Small osteophytes indicate mild tricompartmental osteoarthritis. Alignment is maintained. There is no joint effusion. No fractures are identified within the left forearm. Radiocarpal and intercarpal alignments appear maintained. First carpometacarpal osteoarthritis appears moderate. IMPRESSION: 1. Mild tricompartmental osteoarthritis of the elbow. 2. No fracture or malalignment. Electronically signed by: Leonel Owen MD (11/28/2019 9:15 AM) [id number]
== END | disposition home or self-care (01) ==
LOC: KCIC 08:18
PROVIDERS: ATTEND Family Medicine
DX: S53.002A Unspecified subluxation of left radial head, initial encounter (principal); X58.XXXA Exposure to other specified factors, initial encounter; Y93.89 Activity, other specified; Y92.89 Other specified places as the place of occurrence of the external cause; Y99.8 Other external cause status; M18.12 Unilateral primary osteoarthritis of first carpometacarpal joint, left hand; M19.022 Primary osteoarthritis, left elbow
CPT/HCPCS: 73070; 73090

== ENCOUNTER 2020-01-09 17:46 | Emergency (ER) | payer BC ==
[~2020-01-09] VITALS: Ht 182.9 cm; Wt 180.9 kg
--- NOTE | 2020-01-09 19:08 | PHYS DOC ---
Past Medical History Past Medical History: COPD, GERD, Hypertension Past Surgical History: Cholecystectomy Additional Past Surgical Histo: CABG Smoking Status: Never Smoker Alcohol Use: None Drug Use: None General Adult EDM: Chief Complaint: LOWER EXTREMITY SWELLING HPI: HPI: Patient is a 74 year old male who presents to the Emergency Room c/o L lower leg swelling and redness. He states this started 3 days ago and has progressed. He has primary care doctor today who recommended that he come to the emergency room to be evaluated for a DVT. He denies any history of blood clots though he does have a long history of atherosclerosis. He states that the leg is not hot but feels very swollen and painful. He has not had any fever or drainage from the leg. His other leg has been normal. He denies any chest pain or shortness of breath. Review of Systems: Review of Systems: General: Denies fever, chills, sweats, fatigue Eyes: Denies drainage, blurred vision, eye redness HENT: Denies rhinorrhea, sore throat, earache Respiratory: Denies cough, shortness of breath, wheezing Cardiac: Denies edema, palpitations, chest pain GI: Denies abdominal pain, Nausea, vomiting MSK: Denies back pain, neck pain reports leg pain and swelling Skin: Denies rash, jaundice Neuro: Denies headache, dizziness Psychiatric: Denies SI/HI Heart Score: Risk Factors: Risk Factors: DM, Current or recent (<one month) smoker, HTN, HLP, family history of CAD, obesity. Risk Scores: Score 0 - 3: 2.5% MACE over next 6 weeks - Discharge Home Score 4 - 6: 20.3% MACE over next 6 weeks - Admit for Clinical Observation Score 7 - 10: 72.7% MACE over next 6 weeks - Early Invasive Strategies Allergies: Allergies: Allergies Coded Allergies Type Severity Reaction Last Updated Verified levofloxacin Allergy Intermediate rash 02/11/19 Yes Physical Exam: PE: General: Awake, alert, NAD. Well Nourished, well hydrated. Cooperative HEENT: Atraumatic, EOMI, PERRL, airway patent, moist oral mucosa Neck: Supple, trachea midline Respiratory: CTA bilaterally, normal effort, no wheezing/crackles CV: RRR, no murmur, cap refill <2 GI: Soft, nondistended, nontender, no masses MSK: No obvious deformities Skin: Warm, dry. Left lower leg: Nonpitting swelling, erythema, some warmth, one blister intact, no drainage, 2+ DP pulses Neuro: A&O x3, speech NL, sensory and motor grossly intact, no focal deficits Psych: Normal affect, normal mood, not suicidal or homicidal Current Patient Data: Vital Signs: Vital Signs Date Time Temp Pulse Resp B/P (MAP) Pulse Ox O2 Delivery O2 Flow Rate FiO2 01/09/20 18:15 98.4 90 20 98/59 (72) 96 Room Air 98.4 EKG: EKG: [] Radiology/Procedures: Radiology/Procedures: [] Course & Med Decision Making: Course & Med Decision Making Pertinent Labs and Imaging studies reviewed. (See chart for details) Patient is 74-year-old male presents to the emergency room complaining of left lower leg pain. He does have some swelling and warmth. Differential diagnosis includes cellulitis versus DVT. Ultrasound was ordered. Patient does not have fever, tachycardia, or any signs of systemic illness at this time. He has not had any chest pain or shortness of breath that would be suggestive of a pulmonary embolism. Ultrasound is negative for DVT. It is likely patient's symptoms are secondary to cellulitis. He does not have any concerning symptoms that would require labs or IV antibiotics. Patient will be discharged home on antibiotics. Patient's test results and vitals while in the ED were fully reviewed and discussed with the patient. Patient is stable and at this time does not need admission to the hospital. We have discussed strict return precautions and the importance of following up with their Primary Care Physician. Patient stated understanding and was given an opportunity to ask any questions. Patient is in agreement with plan. Dragon Disclaimer: Dragon Disclaimer: This electronic medical record was generated, in whole or in part, using a voice recognition dictation system. Departure Departure Impression: Primary Impression: Cellulitis Disposition: 01 HOME, SELF-CARE Condition: STABLE Referrals: Roman LOCKETT MD (PCP) Patient Instructions: Cellulitis Scripts Clindamycin Hcl (CLINDAMYCIN HCL) 300 Mg Capsule 1 CAP PO TID for 10 Days, #30 CAP Prov: SAKINA PENNINGTON MD 01/09/20 Justicifation of Admission Dx: Justifications for Admission: Justification of Admission Dx: Yes SAKINA PENNINGTON MD Jan 09, 2020 19:08
--- NOTE | 2020-01-09 19:47 | RAD ---
Left lower extremity venous duplex study 01/09/2020 Clinical History: Left leg swelling. Technique: Using a combination of real time ultrasound imaging and color-flow and pulse Doppler imaging techniques along with graded compression and augmentation, duplex evaluation of the deep venous system of the left lower extremity was performed. Multiple images were obtained. Findings: There is no sonographic evidence of deep venous thrombosis involving the visualized deep venous structures of the left lower extremity. Impression: Negative study. Electronically signed by: Jake Redd MD (01/09/2020 7:44 PM) [id number]
[2020-01-09] MEDS ORDERED: CLIN300C8 PO (20:12)
[2020-01-09 20:15] VITALS: BP 99/74
== END 2020-01-09 20:16 | disposition home or self-care (01) ==
LOC: ER 17:46
DX: L03.116 Cellulitis of left lower limb (principal); M79.89 Other specified soft tissue disorders; K21.9 Gastro-esophageal reflux disease without esophagitis; J44.9 Chronic obstructive pulmonary disease, unspecified; I10 Essential (primary) hypertension; Z90.49 Acquired absence of other specified parts of digestive tract; Z98.890 Other specified postprocedural states; Z88.1 Allergy status to other antibiotic agents
CPT/HCPCS: 93971; 99284

== ENCOUNTER → 2020-02-05 | Outpatient (CLI) | payer BC ==
[2020-01-09 20:15] VITALS: BP 99/74
[~2020-02-05] MED LIST changes: +CLIN300C8 PO
--- NOTE | 2020-02-05 13:26 | KCIC ---
EXAMINATION: KNEE BILAT 3V CLINICAL HISTORY: Chronic bilateral knee pain TECHNIQUE: KNEE BILAT 3V Number of images/views: 7 COMPARISON: None FINDINGS: Marked medial compartment narrowing bilaterally with near [id number] contact, greater on the right. Moderate lateral compartment narrowing bilaterally. Tricompartmental small marginal osteophytes. No acute fracture. Bilateral small suprapatellar enthesophytes. No joint effusion. Vascular calcifications. Surgical clips in the soft tissues along the medial aspect of the left knee. IMPRESSION: Bilateral compartmental degenerative changes, advanced in the medial compartments. Electronically signed by: Suman Campos DO (02/05/2020 1:24 PM) [id number]
== END | disposition home or self-care (01) ==
LOC: KCIC 11:12
PROVIDERS: ATTEND Family Medicine
DX: M17.0 Bilateral primary osteoarthritis of knee (principal); M25.762 Osteophyte, left knee; M25.761 Osteophyte, right knee; M77.8 Other enthesopathies, not elsewhere classified; G89.29 Other chronic pain
CPT/HCPCS: 73562

== ENCOUNTER → 2020-04-14 | Outpatient (CLI) | payer BC ==
[~2020-04-14] MED LIST changes: +IOHEXOL 180 MG/ML 10 ML VIAL. ONE; +methylPREDNISolone ACETATE 40 MG/ML VIAL. ONE; +methylPREDNISolone ACETATE 80 MG/ML VIAL. ONE
--- NOTE | 2020-04-14 10:06 | PDOC ---
Progress Note - Pain Clinic Date of Service: DOS: DATE: 04/14/20 TIME: 10:02 Diagnosis: Dx: Lumbar radiculopathy with lumbar degenerative disease and lumbar spondylosis History or Present Illness: HPI: 74-year-old male returns for follow-up status post lumbar epidural steroid injections x2. Most recently October 08, 2019. Patient reports she did very well after the last injection near 100% improvement for almost 1 month following the injection patient ports that over that time the pain is returned in the low back and his left lower extremity posterior gluteus posterior lateral thigh lateral anterior thigh anteromedial thigh and posterior knee on the left side and some in the calf patient which is aching burning becoming more constant radiating tingling severe patient rates is an 8 on scale 10 is worse over the past week 8 on average 7 its least and is an 8 today. She reports no new motor or sensory deficits no bowel or bladder incontinence but very significant fatigue in the left lower extremity with ambulation. Patient ports it wakes her from sleep about once every 3 hours now over the past month or so but prior to that was doing quite a bit better with walking distances doing household activities as well as sleeping. Patient reports no new motor or sensory deficits no new bowel or bladder incontinence or other complaint Physical Exam: VS: Blood pressure is 123/40 pulse 74 respirations 18 temperature 90.1 F height is 6 foot weight is 391 PE: PHYSICAL EXAMINATION: GENERAL: The patient is awake, alert, oriented, appropriate, and is very pleasant demeanor HEENT: Shows normocephalic, atraumatic. Extraocular movements are intact and symmetrical. Oral cavity: Mucous membranes moist and pink. Full hernandez and mustache NECK: Shows anterior throat supple without palpable lymphadenopathy noted. Swallow reflex symmetrical. CHEST: Shows normal on inspection. Breath sounds are clear bilaterally, no rales rhonchi or wheezes auscultated. HEART: Shows S1, S2 clear. No murmurs auscultated. ABDOMEN: Soft, nontender, nondistended, obese. No palpable organomegaly is noted. No rebound or guarding demonstrated. BACK: Shows spine grossly in the midline. Normal-appearing cervical lordotic curvature. There is slightly increased thoracic kyphosis, some minor flattening of the lumbar lordotic curvature. Lumbar paraspinous muscles show symmetrical on inspection, on palpation shows some moderate tenderness diffusely throughout the upper, middle and lower distribution of the paraspinous muscles bilaterally and also into the lower thoracic paraspinous musculature, firm and tender, but without specific trigger points, without radiation of pain. The patient has good rotational motion of the lumbar spine, both laterally as well as extension and flexion without significant difficulty. No tenderness over the spinous processes, sacrum or sacroiliac regions. EXTREMITIES: Lower extremities show deep tendon reflexes 1+ in the patellar and tendo calcaneus tendons. Motor exam is 4 on a scale of 5 with right dorsiflexion, extension, quadriceps and hamstring flexion and 4/5 on the left. Peripheral pulses are 1+ posterior tibial. SKIN: Shows warm and dry, good turgor. No edema. No sores, rashes or bruising throughout. Procedure: Procedure: Options were discussed with the patient. Patient chart was reviewed his his current medication regimen updated current review of systems updated today as well. We will proceed with a third in the series lumbar epidural steroid injec tion today with fluoroscopic guidance. Risks were discussed including but not limited to: Bleeding, infection, possibility of epidural hematoma and subsequent neurological compromise, dural puncture, headaches, spinal cord and/or nerve damage, side effects of steroid medication, and poor results regarding pain control. Patient understands wished to proceed. Patient will return to clinic in approximate 2 weeks for follow-up, was counseled as to return appointment activity level and side effects to be aware of. Medication Injected: Med Injected: Procedure is lumbar epidural steroid injection under local anesthetic using sterile prep and drape at the L3-4 level using C-arm fluoroscopic guidance in both AP and lateral views medications injected is 120 mg Depo-Medrol + 10 mL preservative-free normal saline and 2 mL contrast- condition at discharge is st able patient tolerated procedure well had no complications. Condition at Discharge: Condition at Discharge: Condition discharge stable, patient tolerated procedure well and had no complications. EVERETT ADAMS MD Apr 14, 2020 10:05
== END | disposition home or self-care (01) ==
LOC: PNCL 09:12
PROVIDERS: ATTEND Anesthesiology
DX: M51.16 Intervertebral disc disorders with radiculopathy, lumbar region (principal); M47.26 Other spondylosis with radiculopathy, lumbar region; Z79.82 Long term (current) use of aspirin; Z79.899 Other long term (current) drug therapy; Z98.890 Other specified postprocedural states
CPT/HCPCS: 62323; J1030; J1040; Q9965

== ENCOUNTER → 2020-04-22 | Outpatient (CLI) | payer BC ==
[~2020-04-22] MED LIST changes: -CLIN300C8 PO; +CLIN300C9 PO
--- NOTE | 2020-04-22 14:07 | PDOC ---
Progress Note - Pain Clinic Date of Service: DOS: DATE: 04/22/20 TIME: 14:04 Diagnosis: Dx: Lumbar radiculopathy with lumbar degenerative disc disease and lumbar spondylosis History or Present Illness: HPI: 74-year-old male returns follow-up status post lumbar epidural straight injections x3. Last seen March 2015 past week patient ports he did very well after the last injection but the pain is returning down his left lower extremity posterior gluteus posterior lateral thigh anterior thigh anterior medial thigh and medial lower leg patient reports some spasms in his back recently as well initially was doing better by about 50% but the pain returned quickly after about 5 days patient reports it wakes him from sleep now at every 4-5 hours patient reports the pain is radiating constant becoming more severe worse with walking standing changing positions better with sitting or laying but again awaken him from sleep. Patient rates his pain a 8 on scale 10 at all times worst least an average and is an 8 today. Patient reports no new motor or sensory deficits no new bowel or bladder incontinence or other complaints. Physical Exam: VS: Pressure is 140/76 pulse 93 respirations 18 temperature is 98.2 F height is 6 foot weight is 374 pounds PE: PHYSICAL EXAMINATION: GENERAL: The patient is awake, alert, oriented, appropriate, very pleasant demeanor HEENT: Shows normocephalic, atraumatic. Extraocular movements are intact and symmetrical. Full hernandez and mustache NECK: Shows anterior throat supple without palpable lymphadenopathy noted. Swallow reflex symmetrical. CHEST: Shows normal on inspection. Breath sounds are clear bilaterally, no rales rhonchi or wheezes. HEART: Shows S1, S2 clear. No murmurs auscultated. ABDOMEN: Soft, nontender, nondistended, obese. No palpable organomegaly is noted. No rebound or guarding demonstrated. BACK: Shows spine grossly in the midline. Normal-appearing cervical lordotic curvature. There is slightly increased thoracic kyphosis, some minor flattening of the lumbar lordotic curvature. Lumbar paraspinous muscles show symmetrical on inspection, on palpation shows some moderate tenderness diffusely throughout the upper, middle and lower distribution of the paraspinous muscles, but without specific trigger points, without radiation of pain. The patient has good rotational motion of the lumbar spine, both laterally as well as extension and flexion without significant difficulty. EXTREMITIES: Lower extremities show deep tendon reflexes 1+ in the patellar and tendo calcaneus tendons. Motor exam is 4 on a scale of 5 with right dorsiflexion, extension, quadriceps and hamstring flexion and 4/5 on the left. Peripheral pulses are 1+ posterior tibial. No peripheral edema is noted bilaterally. Lower extremities are warm and dry to touch, equal in color and appearance. SKIN: Shows warm and dry, good turgor. No edema. No sores, rashes or bruising throughout. Procedure: Procedure: Options were discussed with the patient. Patient's old chart was reviewed his his current medication regimen updated current review of systems updated today as well. We will proceed with a first in the series lumbar epidural steroid injection today with fluoroscopic guidance. Risks were discussed including but not limited to: Bleeding, infection, possibility of epidural hematoma and subsequent neurological compromise, dural puncture, headaches, spinal cord and/or nerve damage, side effects of steroid medication, and poor results regarding pain control. Patient understands wished to proceed. Patient return to clinic in possibly 2 weeks for follow-up was counseled as to return appointment activity level and side effects to be aware of. Medication Injected: Med Injected: Procedure is lumbar epidural steroid injection under local anesthetic using sterile prep and drape at the L3-4 level using C-arm fluoroscopic guidance in both AP and lateral views medications injected is 120 mg Depo-Medrol + 10 mL preservative-free normal saline and 2 mL contrast- condition at discharge is stable patient tolerated procedure well had no complications. Condition at Discharge: Condition at Discharge: Condition at discharge is stable, patient tolerated procedure well and had no complications. EVERETT ADAMS MD Apr 22, 2020 14:07
== END | disposition home or self-care (01) ==
LOC: PNCL 13:23
PROVIDERS: ATTEND Anesthesiology
DX: M51.16 Intervertebral disc disorders with radiculopathy, lumbar region (principal); M47.26 Other spondylosis with radiculopathy, lumbar region; Z79.82 Long term (current) use of aspirin; Z79.899 Other long term (current) drug therapy; Z88.1 Allergy status to other antibiotic agents
CPT/HCPCS: 62323; J1030; J1040; Q9965

== ENCOUNTER → 2020-06-07 | Outpatient (CLI) | payer BC ==
[~2020-06-07] MED LIST changes: -IOHEXOL 180 MG/ML 10 ML VIAL. ONE; -methylPREDNISolone ACETATE 40 MG/ML VIAL. ONE; -methylPREDNISolone ACETATE 80 MG/ML VIAL. ONE
--- NOTE | 2020-06-07 09:25 | PDOC ---
Progress Note - Pain Clinic Date of Service: DOS: DATE: 06/07/20 TIME: Diagnosis: Dx: Lumbar radiculopathy with lumbar degenerative disc disease and lumbar spondylosis History or Present Illness: HPI: 75-year-old male returns in follow-up status post lumbar epidural steroid injection x1. Patient reports he did very well about 75 to 80% improvement after the injection which was April 22, 2020 patient reports still pain low back left lower extremity posterior gluteus posterior thigh as well as the lateral thigh anterior thigh medial thigh and medial knee on the left side greater than right. Patient reports he has been increasing his activity he is doing some chiropractic work as well as losing weight about 20 pound so far and feels he is doing better. Patient ports pain is a form scale 10 at all times worst least on average over the past week and a 4 today patient describes pain as aching in the low back radiating constant more in the left leg but much better than previously. Patient reports he still taking 1 hydrocodone 5 mg a day and gets this through his physician at the [place]. Patient reports no new motor or sensory deficits he is increase his distance walking doing household activities travel with greater ease and comfort sitting better at night does not awaken him from sleep. Physical Exam: VS: Blood pressure is 143/52 pulse 90 respirations 18 temperature 98.5 F weight is 370 pounds PE: PHYSICAL EXAMINATION: GENERAL: The patient is awake, alert, oriented, appropriate, very pleasant demeanor HEENT: Shows normocephalic, atraumatic. Extraocular movements are intact and symmetrical. NECK: Shows anterior throat supple without palpable lymphadenopathy noted. Swallow reflex symmetrical. CHEST: Shows normal on inspection. Breath sounds are clear bilaterally, no rales or rhonchi. HEART: Shows S1, S2 clear. No murmurs auscultated. ABDOMEN: Soft, nontender, nondistended, obese. No palpable organomegaly is noted. No rebound or guarding demonstrated. BACK: Shows spine grossly in the midline. Normal-appearing cervical lordotic curvature. There is slightly increased thoracic kyphosis, some minor flattening of the lumbar lordotic curvature. Lumbar paraspinous muscles show symmetrical on inspection, on palpation shows some moderate tenderness diffusely throughout the upper, middle and lower distribution of the paraspinous muscles, but without specific trigger points, without radiation of pain. The patient has good rotational motion of the lumbar spine, both laterally as well as extension and flexion without significant difficulty. EXTREMITIES: Lower extremities show deep tendon reflexes 1+ in the patellar and tendo calcaneus tendons. Motor exam is 4 on a scale of 5 with right dorsiflexion, extension, quadriceps and hamstring flexion and 4/5 on the left. Peripheral pulses are 1+ posterior tibial. No peripheral edema is noted bilaterally. Lower extremities are warm and dry to touch, equal in color and appearance. SKIN: Shows warm and dry, good turgor. No edema. No sores, rashes or bruising throughout. Procedure: Procedure: Options were discussed with the patient. Patient's old chart reviewed,his current medication regimen updated current review of systems updated today as well. We will hold any further injections at this time as patient is doing fair amount better would like to increase his activity as tolerated and see how he feels. Patient continue with weight loss strategies as well as stretching strengthening exercises and hydrocodone daily as he has been taking. Patient will return to the clinic if pain returns and will leave follow-up on an as-ne eded basis at this time. Medication Injected: Med Injected: None Condition at Discharge: Condition at Discharge: Condition at discharge is stable. EVERETT ADAMS MD Jun 07, 2020 09:25
== END | disposition home or self-care (01) ==
LOC: PNCL 08:34
PROVIDERS: ATTEND Anesthesiology
DX: M51.16 Intervertebral disc disorders with radiculopathy, lumbar region (principal); M47.26 Other spondylosis with radiculopathy, lumbar region; Z88.1 Allergy status to other antibiotic agents; Z98.890 Other specified postprocedural states
CPT/HCPCS: G0463

== ENCOUNTER → 2020-06-17 | Outpatient (CLI) | payer BC ==
[~2020-06-17] MED LIST changes: +IOHEXOL 180 MG/ML 10 ML VIAL. ONE; +LISI10TA16 PO; -LISI10TA2 PO; +methylPREDNISolone ACETATE 40 MG/ML VIAL. ONE; +methylPREDNISolone ACETATE 80 MG/ML VIAL. ONE
--- NOTE | 2020-06-17 09:14 | PDOC ---
Progress Note - Pain Clinic Date of Service: DOS: DATE: 06/17/20 TIME: 09:11 Diagnosis: Dx: Lumbar radiculopathy with lumbar degenerative disease and lumbar spondylosis History or Present Illness: HPI: 75-year-old male returns to follow-up status post lumbar epidurals injection x1. Patient reports about 70 to 80% improvement of the first injection now the pain is returning in the low back and the left lower extremity posterior gluteus posterior lateral thigh lateral anterior thigh anteromedial thigh medial groin and medial lower leg on the left side. Patient reports is worse when he first gets up and starts walking but gets better after time with standing and walking but standing still is still significant painful in the low back and the left leg patient reports it is a constant pain is aching in the back shooting and stabbing in the left lower extremity patient rates is an 8 on scale 10 is worse with past week 8 on average 6 its least and is an 8 today patient reports no new motor or sensory deficits better with sitting or laying down once again does not awaken from sleep at night. Patient reports no new bowel or bladder incontinence. Physical Exam: VS: Blood pressure is 146/67 pulse 93 respirations 18 temperature 98.2 F is 6 foot weight 264 pounds PE: PHYSICAL EXAMINATION: GENERAL: The patient is awake, alert, oriented, appropriate, and very pleasant demeanor HEENT: Shows normocephalic, atraumatic. Extraocular movements are intact and symmetrical. Full hernandez and mustache. NECK: Shows anterior throat supple without palpable lymphadenopathy noted. Swallow reflex symmetrical. CHEST: Shows normal on inspection. Breath sounds are clear bilaterally. HEART: Shows S1, S2 clear. No murmurs auscultated. ABDOMEN: Soft, nontender, nondistended, obese. No palpable organomegaly is noted. No rebound or guarding demonstrated. BACK: Shows spine grossly in the midline. Normal-appearing cervical lordotic curvature. There is slightly increased thoracic kyphosis, some minor flattening of the lumbar lordotic curvature. Lumbar paraspinous muscles show symmetrical on inspection, on palpation shows some moderate tenderness diffusely throughout the upper, middle and lower distribution of the paraspinous muscles without specific trigger points, without radiation of pain. The patient has good rotational motion of the lumbar spine, both laterally as well as extension and flexion without significant difficulty. EXTREMITIES: Lower extremities show deep tendon reflexes 1+ in the patellar and tendo calcaneus tendons. Motor exam is 4 on a scale of 5 with right dorsiflexion, extension, quadriceps and hamstring flexion and 4/5 on the left. Peripheral pulses are 1+ posterior tibial. No peripheral edema is noted bilaterally. Lower extremities are warm and dry to touch, equal in color and appearance. SKIN: Shows warm and dry, good turgor. No edema. No sores, rashes or bruising throughout. Procedure: Procedure: Options were discussed with the patient. Patient chart reviewed his current medication regimen updated current review of systems updated today as well. We will proceed with a lumbar epidural steroid injection today with fluoroscopic guidance. Risks were discussed including but not limited to: Bleeding, infection, possibility of epidural hematoma and subsequent neurological compromise, dural puncture, headaches, spinal cord and/or nerve damage, side effects of steroid medication, and poor results regarding pain control. Patient understands and wished to proceed. Patient will return to clinic in approximate 2 weeks for follow-up, was counseled as to return appointment activity level and side effects be aware of. We also discussed neurosurgical consultation and will obtain new MRI scan as has been over a year and a half since his last MRI which showed a leftward disc protrusion at the L3-4 level. Medication Injected: Med Injected: Procedure is lumbar epidural steroid injection under local anesthetic using sterile prep and drape at the L3-4 level using C-arm fluoroscopic guidance in both AP and lateral views medications injected is 120 mg Depo-Medrol + 10 mL preservative-free normal saline and 2 mL contrast- condition at discharge is stable patient tolerated procedure well had no complications. Condition at Discharge: Condition at Discharge: Condition at discharge is stable, patient tolerated procedure well and had no complications. EVERETT ADAMS MD Jun 17, 2020 09:14
--- NOTE | 2020-06-17 09:15 | PDOC4 ---
PROCEDURE Procedure Patient was consented for lumbar epidural steroid injection. Risks were dis cussed including but not limited to: Bleeding, infection, possibility of epidural hematoma and subsequent neurological compromise, dural puncture, headaches, spinal cord and/or nerve damage, side effects of steroid medication, and poor results regarding pain control. Patient understands and wished to proceed. Procedure is lumbar epidural steroid injection under local anesthetic using sterile prep and drape at the L3-4 level using C-arm fluoroscopic guidance in both AP and lateral views medications injected is 120 mg Depo-Medrol + 10 mL preservative-free normal saline and 2 mL contrast- condition at discharge is stable patient tolerated procedure well had no complications. EVERETT ADAMS MD Jun 17, 2020 09:15
== END | disposition home or self-care (01) ==
LOC: PNCL 08:02
PROVIDERS: ATTEND Anesthesiology
DX: M51.16 Intervertebral disc disorders with radiculopathy, lumbar region (principal); M47.26 Other spondylosis with radiculopathy, lumbar region; Z79.82 Long term (current) use of aspirin; Z79.899 Other long term (current) drug therapy; Z88.1 Allergy status to other antibiotic agents
CPT/HCPCS: 62323; J1030; J1040; Q9965

== ENCOUNTER → 2020-06-21 | Outpatient (CLI) | payer BC ==
[~2020-06-21] MED LIST changes: -IOHEXOL 180 MG/ML 10 ML VIAL. ONE; -methylPREDNISolone ACETATE 40 MG/ML VIAL. ONE; -methylPREDNISolone ACETATE 80 MG/ML VIAL. ONE
--- NOTE | 2020-06-21 15:20 | KCIC ---
EXAMINATION: Magnetic resonance imaging (MRI) of the lumbar spine without contrast 06/21/2020 12:46 PM HISTORY: Radiculopathy TECHNIQUE: Multiplanar multi-weighted MRI of the lumbar spine was performed without intravenous contr ast using the standard lumbar spine protocol. Contrast information: None administered. COMPARISON: None available. FINDINGS: Alignment lumbar spine is normal. Vertebral body heights are maintained. There is mild disc height lo ss at L2-L3, L3-L4, L4-L5 and L5-S1 with vacuum disc phenomena and disc desiccation. Conus medullaris terminates at T12. Distal spinal cord signal intensity is normal in all sequences. Mild anterior mar ginal osteophyte ptosis is identified. No acute fracture. Abdominal aorta is normal in caliber. Simpl e appearing right renal cortical cyst is only partially profiled measuring up to 4.4 cm. No retroperi toneal suspicious abnormality is identified. Visualized portions of the sacrum appear intact. L1-L2: Mild disc bulge. Mild facet arthropathy. No neuroforaminal or spinal canal stenosis. L2-L3: There is a circumferential disc bulge with left central disc extrusion. Moderate facet arthrop athy. There is severe left lateral recess stenosis. There is mild to moderate bilateral neuroforamina l stenosis. Moderate spinal canal stenosis. There is complete of the nerve roots posteriorly as may b e seen with arachnoiditis. L3-L4: There is a moderate circumferential disc bulge. Moderate facet arthropathy, left greater than right. There is left lateral recess stenosis. Moderate bilateral neural foraminal stenosis. Mild spin al canal stenosis. Compare the nerve roots posteriorly as may be seen with arachnoiditis. L4-L5: There is a moderate circumferential disc bulge. Mild facet arthropathy. Mild to moderate bilat eral neuroforaminal stenosis. No spinal canal stenosis. Clumping of the nerve roots with empty thecal sac. L5-S1: There is a sequential disc bulge with central disc protrusion. Mild facet arthropathy. No neur oforaminal or spinal canal stenosis. Epidural lipomatosis is identified. IMPRESSION: 1. Mild to moderate degenerative changes of lumbar spine, as described in detail above. 2. 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 Electronically signed by: Tierra Thorpe MD (06/21/2020 3:18 PM) [id number]
== END | disposition home or self-care (01) ==
LOC: KCIC MRI 12:33
PROVIDERS: ATTEND Anesthesiology
DX: M47.26 Other spondylosis with radiculopathy, lumbar region (principal); M48.061 Spinal stenosis, lumbar region without neurogenic claudication; Z79.82 Long term (current) use of aspirin; Z79.899 Other long term (current) drug therapy; Z88.1 Allergy status to other antibiotic agents
CPT/HCPCS: 72148